=== PATIENT | male | born 1980 | race Caucasian/White ===

== ENCOUNTER 2016-03-06 22:14 | Emergency (ER) | payer OTHER ==
[~2016-03-06] VITALS: Ht 177.8 cm; Wt 91.2 kg
[~2016-03-06 22:14] MED LIST: ADVIL,NUPRIN,M200 MG PO; CIPRO HC OTIC S10 ML BOTH EARS; CIPRO500 MG PO; CYCLOBENZAPRINE10 MG PO; DOXYCYCLINE HY100 MG PO; FLEXERIL10 MG PO; FLONASE16 G1 BOTH NARES; HYDROCODON-ACE1 EAC7 PO; IBUPROFEN200 M1 PO; INDOCIN25 MG PO; LEXAPRO10 MG PO; LORTAB 5-325 M1 EACH PO; MEDROL DOSEPAK4 MG PO; MILK OF MAGN PO; MOBIC15 MG PO; MOTRIN IB200 MG PO; MOTRIN400 MG PO; MOTRIN800 MG PO; MUCINEX600 MG PO; NAPROSYN500 MG PO; NAPROXEN500 MG PO; NORCO 5/3251 TABLET PO; PERCOCET 5/31 TABLET PO; PREDNISONE10 MG PO; SKELAXIN800 MG PO; SOMA350 MG PO; TRAMADOL HCL50 MG PO; TYLENOL WITH C1 EACH PO; ULTRAM50 MG PO; VALIUM5 MG PO; VICODIN 5-3001 EACH PO; VOLTAREN75 MG PO; ZANTAC150 MG PO; ZOFRAN4 MG PO
[2016-03-06 23:21] LABS: BILIRUBIN SMALL; BLOOD NEGATIVE; COLOR YELLOW ((YELLOW)); GLUCOSE (STRIP) NEGATIVE; KETONES NEGATIVE; LEUKOCYTES NEGATIVE; NITRITE NEGATIVE; PH, URINE 5.5 (5-8); PROTEIN (STRIP) NEGATIVE; SPECIFIC GRAVITY 1.036 (1.000-1.030)
[2016-03-06 23:27] LABS: ADD MIUA? NO; UCUL ADDED? NO
[2016-03-06] MEDS ORDERED: MOTRIN600 MG PO (23:59)
[2016-03-06] MEDS ORDERED: ULTRAM50 MG PO (23:59)
[2016-03-07 00:36] VITALS: BP 143/89
[2016-03-08 13:27] LABS: CHLAMYDIA TRACHOMATIS NEGATIVE; NEISSERIA GONORRHOEAE NEGATIVE
== END 2016-03-07 00:37 | disposition home or self-care (01) ==
LOC: EME 22:14
PROVIDERS: Physician Assistant
DX: N50.811 Right testicular pain (principal); N50.89 Other specified disorders of the male genital organs
CPT/HCPCS: 76870; 81003; 87491; 87591; 99281; 99284

== ENCOUNTER 2016-04-05 08:51 | Emergency (ER) | payer OTHER ==
[~2016-04-05] VITALS: Ht 177.8 cm; Wt 89.9 kg
[~2016-04-05 08:51] MED LIST changes: +MOTRIN600 MG PO
[2016-04-05 09:00] VITALS: BP 118/81
[2016-04-05] MEDS ORDERED: FLEXERIL10 MG PO (09:42)
== END 2016-04-05 10:47 | disposition home or self-care (01) ==
LOC: EME 08:51
DX: S46.912A Strain of unspecified muscle, fascia and tendon at shoulder and upper arm level, left arm, initial encounter (principal); X50.0XXA Overexertion from strenuous movement or load, initial encounter
CPT/HCPCS: 99281; 99283